=== PATIENT | female | born 1975 | race Hispanic/Latino ===

== ENCOUNTER 2019-11-17 08:41 | Emergency (ER) | payer OTHER ==
[2019-11-17] MEDS ORDERED: KETOROLAC TROMETHAMINE 30MG/ML ONE (08:54)
[2019-11-17] MEDS ORDERED: DIAZEPAM 5 MG TABLET ONE (08:54)
[2019-11-17] MEDS ORDERED: SODIUM CHLORIDE 0.9% 500ML 500 ML IV ONE (08:55)
== END 2019-11-17 10:37 | disposition home or self-care (01) ==
LOC: EDH 08:41
DX: S43.402A Unspecified sprain of left shoulder joint, initial encounter (principal); E11.9 Type 2 diabetes mellitus without complications; I10 Essential (primary) hypertension; E78.00 Pure hypercholesterolemia, unspecified; V49.49XA Driver injured in collision with other motor vehicles in traffic accident, initial encounter; Y93.89 Activity, other specified; Y92.89 Other specified places as the place of occurrence of the external cause; Y99.8 Other external cause status
CPT/HCPCS: 71045; 73030; 96374; 99285; J1885; J7040